=== PATIENT | female | born 1955 | race Caucasian/White ===

== ENCOUNTER 2017-08-19 07:10 | Day surgery (SDC) | payer OTHER, SELFPAY ==
[~2017-08-19] VITALS: Ht 167.6 cm; Wt 98.9 kg
[~2017-08-19 07:10] MED LIST: Cymbalta20 MG; ESOM20; ESTR2; LEVSOD50; LORA1; PROG100; TRAM50; TRAZ50
[2017-08-19] MEDS ORDERED: CITA20 PO (08:47)
== END 2017-08-19 22:52 | disposition home or self-care (01) ==
LOC: ORSCMMR 07:10 → ORD 08:30 → ORSCMMR 22:52
DX: C56.1 Malignant neoplasm of right ovary (principal); I10 Essential (primary) hypertension; E03.9 Hypothyroidism, unspecified; K21.9 Gastro-esophageal reflux disease without esophagitis; E66.9 Obesity, unspecified; Z68.35 Body mass index [BMI] 35.0-35.9, adult; Z79.899 Other long term (current) drug therapy
CPT/HCPCS: 77001; C1788; J0690; J1100; J1642; J2250; J2405; J7120

== ENCOUNTER 2017-09-11 14:45 | Day surgery (SDC) | payer OTHER ==
[~2017-09-11 14:45] MED LIST changes: +CITA20 PO
[2017-09-11] MEDS ORDERED: ONDA4 PO (19:04)
[2017-09-11] MEDS ORDERED: Compazine10 MG PO (19:05)
[2017-09-11] MEDS ORDERED: CITA20 PO (19:06)
[2017-09-11] MEDS ORDERED: Frova2.5 MG PO (19:06)
[2017-09-11] MEDS ORDERED: LEVSOD50 PO (19:07)
[2017-09-11] MEDS ORDERED: LORA1 PO (19:08)
[2017-09-11] MEDS ORDERED: MOMENI (19:08)
[2017-09-11] MEDS ORDERED: PANT40 PO (19:09)
[2017-09-11] MEDS ORDERED: RIZATRIPTAN5 M1 PO (19:10)
[2017-09-11] MEDS ORDERED: TOPI25 PO (19:11)
[2017-09-11] MEDS ORDERED: TRAZ100 PO (19:12)
[2017-09-11] MEDS ORDERED: CHOL10002 PO (19:13)
[2017-09-11] MEDS ORDERED: TRAM50 PO (19:13)
[2017-09-11] MEDS ORDERED: CETI5 PO (19:14)
[2017-09-11] MEDS ORDERED: MULTI VITAMIN1 EACH PO (19:15)
[2017-09-11] MEDS ORDERED: PROBIOTIC1 EAC1 PO (19:16)
== END 2017-09-11 17:40 | disposition home or self-care (01) ==
LOC: ATC 14:45
DX: C56.1 Malignant neoplasm of right ovary (principal); I10 Essential (primary) hypertension; E66.9 Obesity, unspecified; F43.29 Adjustment disorder with other symptoms; Z91.048 Other nonmedicinal substance allergy status; Z88.0 Allergy status to penicillin; Z88.8 Allergy status to other drugs, medicaments and biological substances; Z68.36 Body mass index [BMI] 36.0-36.9, adult; Z79.899 Other long term (current) drug therapy; Z90.710 Acquired absence of both cervix and uterus; Z90.722 Acquired absence of ovaries, bilateral; Z90.49 Acquired absence of other specified parts of digestive tract
CPT/HCPCS: 96372; J1447

== ENCOUNTER 2017-09-18 12:27 | Observation (INO) | payer OTHER, SELFPAY ==
[~2017-09-18] VITALS: Ht 167.6 cm; Wt 101.1 kg
[~2017-09-18 12:27] MED LIST changes: +CETI5 PO; +CHOL10002 PO; +Compazine10 MG PO; +Frova2.5 MG PO; +LEVSOD50 PO; +LORA1 PO; +MOMENI; +MULTI VITAMIN1 EACH PO; +ONDA4 PO; +PANT40 PO; +PROBIOTIC1 EAC1 PO; +RIZATRIPTAN5 M1 PO; +TOPI25 PO; +TRAM50 PO; +TRAZ100 PO
[2017-09-18 13:12] LABS: Hematocrit 38.6 % (33.0-51.0); Hemoglobin 12.9 g/dL (11.5-16.0); Mean Corpuscular HGB 26.8 pg (26.0-34.0); Mean Corpuscular HGB Conc 33.4 g/dL (31.5-36.5); Mean Corpuscular Volume 80 fL (80-100); Platelet Count 145 K/mm3 (150-400); RDW Coefficient Variation 13.8 % (11.7-14.2); RDW Standard Deviation 37.6 fL (35.1-46.3); Red Blood Cell Count 4.81 M/mm3 (3.80-5.20)
[2017-09-18 13:32] LABS: Albumin, Blood 3.4 g/dL (3.4-5.0); Albumin/Globulin Ratio 0.8 (0.8-1.8); Bilirubin, Total 0.9 mg/dL (0.1-1.0); Bun/Creatinine Ratio 19.6 (12.0-20.0); Calcium, Blood 8.8 mg/dL (8.5-10.1); Creatinine, Blood 1.07 mg/dL (0.40-1.00); Globulin, Blood 4.3 g/dL (2.2-4.0); Total Protein, Blood 7.7 g/dL (6.4-8.2)
[2017-09-18 13:33] LABS: White Blood Cell Count 0.73 K/mm3 (4.00-11.30)
[2017-09-18 13:39] LABS: Magnesium, Blood 1.3 mg/dL (1.6-2.4); Troponin I <0.015 ng/mL (0.000-0.040)
[2017-09-18 13:48] LABS: BASOPHILS ABSOLUTE MAN 0.02 K/mm3 (0.00-0.23); BASOPHILS PERCENT MAN 4 % (0-2); EOSINOPHILS PERCENT MAN 0 % (0-6); LYMPHOCYTES ABSOLUTE MAN 0.52 K/mm3 (0.84-5.20); LYMPHOCYTES PERCENT MAN 72 % (21-46); MONOCYTES ABSOLUTE MAN 0.14 K/mm3 (0.16-1.47); MONOCYTES PERCENT MAN 20 % (4-13); NEUTROPHILS ABSOLUTE MAN 0.02 K/mm3 (1.96-9.15); SEG NEUTROPHILS PERCENT MAN 4 % (41-73); TOTAL CELLS COUNTED 25
[2017-09-19 05:08] LABS: BASOPHILS PERCENT AUTO 0 % (0-2); Hematocrit 33.1 % (33.0-51.0); Mean Corpuscular HGB 26.8 pg (26.0-34.0); Mean Corpuscular HGB Conc 33.2 g/dL (31.5-36.5); Mean Corpuscular Volume 81 fL (80-100); Mean Platelet Volume 11.4 fL (9.1-12.4); Platelet Count 103 K/mm3 (150-400); RDW Coefficient Variation 13.6 % (11.7-14.2); RDW Standard Deviation 38.1 fL (35.1-46.3); White Blood Cell Count 1.16 K/mm3 (4.00-11.30)
[2017-09-19 05:12] LABS: EOSINOPHILS ABSOLUTE AUTO 0.02 K/mm3 (0.00-0.68); EOSINOPHILS PERCENT AUTO 2 % (0-6); IMMATURE GRAN PERCENT AUTO 0 % (0-1); LYMPHOCYTES ABSOLUTE AUTO 0.51 K/mm3 (0.84-5.20); LYMPHOCYTES PERCENT AUTO 44 % (21-46); MONOCYTES ABSOLUTE AUTO 0.35 K/mm3 (0.16-1.47); MONOCYTES PERCENT AUTO 30 % (4-13); NEUTROPHILS ABSOLUTE AUTO 0.28 K/mm3 (1.96-9.15); NEUTROPHILS PERCENT AUTO 24 % (41-73)
[2017-09-19 05:22] LABS: Albumin, Blood 2.6 g/dL (3.4-5.0); Anion Gap 12 mmol/L (6-16); Blood Urea Nitrogen 16 mg/dL (8-24); Bun/Creatinine Ratio 20.2 (12.0-20.0); CO2, Blood 22 mmol/L (21-32); Calcium, Blood 7.6 mg/dL (8.5-10.1); Chloride, Blood 100 mmol/L (98-108); Creatinine, Blood 0.79 mg/dL (0.40-1.00); Glomerular Filtration Rate >60 (60-); Glucose, Blood 150 mg/dL (70-99); Phosphorus, Blood 1.7 mg/dL (2.5-4.9); Potassium, Blood 2.8 mmol/L (3.5-5.5); Sodium, Blood 134 mmol/L (136-145)
[2017-09-19 14:29] LABS: Source, Urine Voided
[2017-09-19 14:39] LABS: Bilirubin, Urine Neg (Neg); Blood, Urine 3+ (Neg); Glucose Qualitative, Urine Neg (Neg); Ketones, Urine Neg (Neg); Leukocyte Esterase, Urine Neg (Neg); Nitrite, Urine Neg (Neg); Protein, Urine 3+ (Neg); Specific Gravity, Urine 1.015 (1.003-1.022); Urobilinogen, Urine NORM (Normal)
[2017-09-19 14:57] LABS: Appearance, Urine Clear (Clear); Color, Urine Yellow (P-Yellow)
[2017-09-19 14:59] LABS: Bacteria Few /hpf; Squamous Epithelial Cells Few /hpf (Few); Transitional Epithelial Cells Few /hpf (0-Rare)
[2017-09-20 05:47] LABS: Hematocrit 32.5 % (33.0-51.0); Hemoglobin 10.9 g/dL (11.5-16.0); Mean Corpuscular HGB 26.6 pg (26.0-34.0); Mean Corpuscular HGB Conc 33.5 g/dL (31.5-36.5); Mean Corpuscular Volume 79 fL (80-100); Mean Platelet Volume 12.3 fL (9.1-12.4); NRBC ABSOLUTE 0.02 K/mm3 (0.00-0.02); NRBC Auto 0.3 /100 WBC (0.0-0.2); Platelet Count 132 K/mm3 (150-400); RDW Coefficient Variation 13.6 % (11.7-14.2); RDW Standard Deviation 37.8 fL (35.1-46.3); White Blood Cell Count 6.34 K/mm3 (4.00-11.30)
[2017-09-20 06:08] LABS: BAND PERCENT MAN 18 % (0-8); BASOPHILS ABSOLUTE MAN 0.06 K/mm3 (0.00-0.23); BASOPHILS PERCENT MAN 1 % (0-2); EOSINOPHILS ABSOLUTE MAN 0.12 K/mm3 (0.00-0.68); EOSINOPHILS PERCENT MAN 2 % (0-6); LYMPHOCYTES % ATYPICAL MANUAL 1 % (0-0); LYMPHOCYTES ABSOLUTE MAN 1.83 K/mm3 (0.84-5.20); LYMPHOCYTES PERCENT MAN 28 % (21-46); METAMYELOCYTE ABSOLUTE MAN 0.12 K/mm3 (0.00-0.00); METAMYELOCYTE PERCENT MAN 2 % (0-0); MONOCYTES PERCENT MAN 19 % (4-13); MYELOCYTE ABSOLUTE MAN 0.06 K/mm3 (0.00-0.00); MYELOCYTE PERCENT MAN 1 % (0-0); NEUTROPHILS ABSOLUTE MAN 2.91 K/mm3 (1.96-9.15); SEG NEUTROPHILS PERCENT MAN 28 % (41-73); TOTAL CELLS COUNTED 100
[2017-09-21 05:21] LABS: Hematocrit 29.3 % (33.0-51.0); Hemoglobin 9.7 g/dL (11.5-16.0); Mean Corpuscular HGB 26.4 pg (26.0-34.0); Mean Corpuscular HGB Conc 33.1 g/dL (31.5-36.5); Mean Corpuscular Volume 80 fL (80-100); Mean Platelet Volume 12.3 fL (9.1-12.4); NRBC ABSOLUTE 0.02 K/mm3 (0.00-0.02); NRBC Auto 0.2 /100 WBC (0.0-0.2); Platelet Count 124 K/mm3 (150-400); RDW Coefficient Variation 13.7 % (11.7-14.2); RDW Standard Deviation 38.3 fL (35.1-46.3); Red Blood Cell Count 3.67 M/mm3 (3.80-5.20)
[2017-09-21 06:14] LABS: BAND PERCENT MAN 15 % (0-8); BASOPHILS PERCENT MAN 0 % (0-2); EOSINOPHILS PERCENT MAN 0 % (0-6); LYMPHOCYTES ABSOLUTE MAN 2.38 K/mm3 (0.84-5.20); LYMPHOCYTES PERCENT MAN 20 % (21-46); METAMYELOCYTE ABSOLUTE MAN 0.11 K/mm3 (0.00-0.00); METAMYELOCYTE PERCENT MAN 1 % (0-0); MONOCYTES ABSOLUTE MAN 0.71 K/mm3 (0.16-1.47); MONOCYTES PERCENT MAN 6 % (4-13); MYELOCYTE ABSOLUTE MAN 0.47 K/mm3 (0.00-0.00); MYELOCYTE PERCENT MAN 4 % (0-0); NEUTROPHILS ABSOLUTE MAN 8.21 K/mm3 (1.96-9.15); SEG NEUTROPHILS PERCENT MAN 54 % (41-73); TOTAL CELLS COUNTED 100
[2017-09-21 08:36] LABS: Magnesium, Blood 1.6 mg/dL (1.6-2.4)
[2017-09-21 08:45] LABS: Anion Gap 9 mmol/L (6-16); Blood Urea Nitrogen 8 mg/dL (8-24); Bun/Creatinine Ratio 13.2 (12.0-20.0); CO2, Blood 25 mmol/L (21-32); Calcium, Blood 7.3 mg/dL (8.5-10.1); Chloride, Blood 102 mmol/L (98-108); Creatinine, Blood 0.61 mg/dL (0.40-1.00); Glomerular Filtration Rate >60 (60-); Glucose, Blood 114 mg/dL (70-99); Sodium, Blood 136 mmol/L (136-145)
[2017-09-21 08:53] LABS: Potassium, Blood 2.4 mmol/L (3.5-5.5)
[2017-09-22 05:18] LABS: Hematocrit 28.2 % (33.0-51.0); Hemoglobin 9.2 g/dL (11.5-16.0); Mean Corpuscular HGB 26.1 pg (26.0-34.0); Mean Corpuscular HGB Conc 32.6 g/dL (31.5-36.5); Mean Corpuscular Volume 80 fL (80-100); Mean Platelet Volume 11.7 fL (9.1-12.4); NRBC ABSOLUTE 0.02 K/mm3 (0.00-0.02); NRBC Auto 0.1 /100 WBC (0.0-0.2); Platelet Count 155 K/mm3 (150-400); Red Blood Cell Count 3.52 M/mm3 (3.80-5.20); White Blood Cell Count 15.13 K/mm3 (4.00-11.30)
[2017-09-22 05:40] LABS: BAND PERCENT MAN 5 % (0-8); BASOPHILS PERCENT MAN 0 % (0-2); EOSINOPHILS PERCENT MAN 0 % (0-6); LYMPHOCYTES ABSOLUTE MAN 2.87 K/mm3 (0.84-5.20); LYMPHOCYTES PERCENT MAN 19 % (21-46); METAMYELOCYTE ABSOLUTE MAN 0.15 K/mm3 (0.00-0.00); METAMYELOCYTE PERCENT MAN 1 % (0-0); MONOCYTES ABSOLUTE MAN 1.36 K/mm3 (0.16-1.47); MONOCYTES PERCENT MAN 9 % (4-13); MYELOCYTE PERCENT MAN 4 % (0-0); NEUTROPHILS ABSOLUTE MAN 10.13 K/mm3 (1.96-9.15); SEG NEUTROPHILS PERCENT MAN 62 % (41-73); TOTAL CELLS COUNTED 100
[2017-09-23 05:16] LABS: Hematocrit 27.8 % (33.0-51.0); Hemoglobin 9.1 g/dL (11.5-16.0); Mean Corpuscular HGB 26.7 pg (26.0-34.0); Mean Corpuscular HGB Conc 32.7 g/dL (31.5-36.5); Mean Corpuscular Volume 82 fL (80-100); Mean Platelet Volume 11.2 fL (9.1-12.4); NRBC ABSOLUTE 0.03 K/mm3 (0.00-0.02); NRBC Auto 0.2 /100 WBC (0.0-0.2); Platelet Count 183 K/mm3 (150-400); RDW Coefficient Variation 14.6 % (11.7-14.2); RDW Standard Deviation 41.2 fL (35.1-46.3); Red Blood Cell Count 3.41 M/mm3 (3.80-5.20); White Blood Cell Count 17.14 K/mm3 (4.00-11.30)
[2017-09-23 05:37] LABS: Anion Gap 8 mmol/L (6-16); Blood Urea Nitrogen 9 mg/dL (8-24); Bun/Creatinine Ratio 14.6 (12.0-20.0); CO2, Blood 24 mmol/L (21-32); Calcium, Blood 7.5 mg/dL (8.5-10.1); Chloride, Blood 106 mmol/L (98-108); Creatinine, Blood 0.62 mg/dL (0.40-1.00); Glomerular Filtration Rate >60 (60-); Glucose, Blood 115 mg/dL (70-99); Potassium, Blood 2.7 mmol/L (3.5-5.5); Sodium, Blood 138 mmol/L (136-145)
[2017-09-23 06:18] LABS: BAND PERCENT MAN 4 % (0-8); BASOPHILS ABSOLUTE MAN 0.17 K/mm3 (0.00-0.23); BASOPHILS PERCENT MAN 1 % (0-2); EOSINOPHILS PERCENT MAN 0 % (0-6); LYMPHOCYTES ABSOLUTE MAN 2.57 K/mm3 (0.84-5.20); LYMPHOCYTES PERCENT MAN 15 % (21-46); METAMYELOCYTE ABSOLUTE MAN 0.17 K/mm3 (0.00-0.00); METAMYELOCYTE PERCENT MAN 1 % (0-0); MONOCYTES ABSOLUTE MAN 1.71 K/mm3 (0.16-1.47); MONOCYTES PERCENT MAN 10 % (4-13); MYELOCYTE ABSOLUTE MAN 0.34 K/mm3 (0.00-0.00); MYELOCYTE PERCENT MAN 2 % (0-0); NEUTROPHILS ABSOLUTE MAN 12.16 K/mm3 (1.96-9.15); SEG NEUTROPHILS PERCENT MAN 67 % (41-73); TOTAL CELLS COUNTED 100
[2017-09-23 14:45] LABS: Anion Gap 8 mmol/L (6-16); Blood Urea Nitrogen 9 mg/dL (8-24); Bun/Creatinine Ratio 13.5 (12.0-20.0); CO2, Blood 24 mmol/L (21-32); Calcium, Blood 7.7 mg/dL (8.5-10.1); Chloride, Blood 108 mmol/L (98-108); Creatinine, Blood 0.67 mg/dL (0.40-1.00); Glomerular Filtration Rate >60 (60-); Glucose, Blood 109 mg/dL (70-99); Potassium, Blood 3.3 mmol/L (3.5-5.5); Sodium, Blood 140 mmol/L (136-145)
[2017-09-24 05:31] LABS: Hematocrit 28.3 % (33.0-51.0); Hemoglobin 9.1 g/dL (11.5-16.0); Mean Corpuscular HGB 26.7 pg (26.0-34.0); Mean Corpuscular HGB Conc 32.2 g/dL (31.5-36.5); Mean Corpuscular Volume 83 fL (80-100); Mean Platelet Volume 10.4 fL (9.1-12.4); NRBC ABSOLUTE 0.06 K/mm3 (0.00-0.02); NRBC Auto 0.3 /100 WBC (0.0-0.2); Platelet Count 210 K/mm3 (150-400); RDW Coefficient Variation 15.1 % (11.7-14.2); RDW Standard Deviation 43.8 fL (35.1-46.3); Red Blood Cell Count 3.41 M/mm3 (3.80-5.20); White Blood Cell Count 20.08 K/mm3 (4.00-11.30)
[2017-09-24 05:53] LABS: Anion Gap 6 mmol/L (6-16); Blood Urea Nitrogen 7 mg/dL (8-24); Bun/Creatinine Ratio 10.6 (12.0-20.0); CO2, Blood 24 mmol/L (21-32); Calcium, Blood 7.6 mg/dL (8.5-10.1); Chloride, Blood 110 mmol/L (98-108); Creatinine, Blood 0.66 mg/dL (0.40-1.00); Glomerular Filtration Rate >60 (60-); Glucose, Blood 106 mg/dL (70-99); Phosphorus, Blood 1.3 mg/dL (2.5-4.9); Potassium, Blood 3.2 mmol/L (3.5-5.5); Sodium, Blood 140 mmol/L (136-145)
[2017-09-24 06:05] LABS: BAND PERCENT MAN 12 % (0-8); BASOPHILS PERCENT MAN 0 % (0-2); EOSINOPHILS PERCENT MAN 0 % (0-6); LYMPHOCYTES ABSOLUTE MAN 4.21 K/mm3 (0.84-5.20); LYMPHOCYTES PERCENT MAN 21 % (21-46); METAMYELOCYTE PERCENT MAN 4 % (0-0); MONOCYTES PERCENT MAN 2 % (4-13); MYELOCYTE PERCENT MAN 6 % (0-0); NEUTROPHILS ABSOLUTE MAN 13.45 K/mm3 (1.96-9.15); SEG NEUTROPHILS PERCENT MAN 55 % (41-73); TOTAL CELLS COUNTED 100
[2017-09-26] MEDS ORDERED: Lomotil Tablet1 EACH PO (12:54)
== END 2017-09-26 14:05 | disposition home or self-care (01) ==
LOC: ER 12:27 → MEDS 15:26 → ER 15:26 → MEDS 17:19 → ER 09-19 12:29 → MEDS 09-19 12:29 → ENPENDDIS 09-26 12:43 → MEDS 09-26 14:05
PROVIDERS: Emergency Medicine; Family Medicine; Internal Medicine
DX: D70.1 Agranulocytosis secondary to cancer chemotherapy (principal); K52.1 Toxic gastroenteritis and colitis; T45.1X5A Adverse effect of antineoplastic and immunosuppressive drugs, initial encounter; C56.9 Malignant neoplasm of unspecified ovary; E87.6 Hypokalemia; E83.42 Hypomagnesemia; E86.0 Dehydration; G43.909 Migraine, unspecified, not intractable, without status migrainosus; F32.9 Major depressive disorder, single episode, unspecified; E03.9 Hypothyroidism, unspecified; K21.9 Gastro-esophageal reflux disease without esophagitis; I10 Essential (primary) hypertension; M79.7 Fibromyalgia; K76.0 Fatty (change of) liver, not elsewhere classified; Z90.49 Acquired absence of other specified parts of digestive tract; Z90.710 Acquired absence of both cervix and uterus; Z90.722 Acquired absence of ovaries, bilateral; Z90.89 Acquired absence of other organs; Z79.899 Other long term (current) drug therapy; Z88.0 Allergy status to penicillin; Z91.041 Radiographic dye allergy status; Z88.1 Allergy status to other antibiotic agents; Z88.8 Allergy status to other drugs, medicaments and biological substances; Z98.890 Other specified postprocedural states
CPT/HCPCS: 36415; 71045; 80048; 80053; 80069; 81001; 83690; 83735; 84132; 84484; 85025; 87015; 87040; 87045; 87046; 87070; 87205; 87493; 87899; 93005; 93010; 96361; 96365; 96366; 96372; 96374; 96375; 96376; 99285; G0378; J1170; J1447; J1956; J2405; J3480; J7030

== ENCOUNTER 2017-10-11 01:05 | Day surgery (SDC) | payer OTHER ==
[~2017-10-11 01:05] MED LIST changes: +Lomotil Tablet1 EACH PO
== END 2017-10-11 13:36 | disposition home or self-care (01) ==
LOC: ATC 01:05
DX: C56.1 Malignant neoplasm of right ovary (principal); E66.9 Obesity, unspecified; I10 Essential (primary) hypertension; F32.9 Major depressive disorder, single episode, unspecified
CPT/HCPCS: 96372; J1447

== ENCOUNTER 2017-10-12 01:12 | Day surgery (SDC) | payer OTHER | END 2017-10-12 14:35 | disposition home or self-care (01) | LOC: ATC 01:12 | DX: C56.1 Malignant neoplasm of right ovary (principal) | CPT/HCPCS: 96372; J1447 ==

== ENCOUNTER 2017-11-07 01:29 | Day surgery (SDC) | payer OTHER | END 2017-11-07 14:15 | disposition home or self-care (01) | LOC: ATC 01:29 | DX: C56.9 Malignant neoplasm of unspecified ovary (principal) | CPT/HCPCS: 96372; J1447 ==

== ENCOUNTER 2017-11-08 00:17 | Day surgery (SDC) | payer OTHER | END 2017-11-08 13:39 | disposition home or self-care (01) | LOC: ATC 00:17 | DX: C56.9 Malignant neoplasm of unspecified ovary (principal) | CPT/HCPCS: 96372; J1447 ==

== ENCOUNTER 2017-11-28 00:25 | Day surgery (SDC) | payer OTHER ==
[2017-11-28] MEDS ORDERED: FILG480I (14:14)
== END 2017-11-28 14:15 | disposition home or self-care (01) ==
LOC: ATC 00:25
DX: D70.1 Agranulocytosis secondary to cancer chemotherapy (principal); C56.1 Malignant neoplasm of right ovary
CPT/HCPCS: 96372; J1447

== ENCOUNTER 2017-11-29 00:39 | Day surgery (SDC) | payer OTHER ==
[~2017-11-29 00:39] MED LIST changes: +FILG480I
== END 2017-11-29 15:20 | disposition home or self-care (01) ==
LOC: ATC 00:39
DX: D70.1 Agranulocytosis secondary to cancer chemotherapy (principal); C56.1 Malignant neoplasm of right ovary
CPT/HCPCS: 96372; J1447

== ENCOUNTER 2017-12-19 00:14 | Day surgery (SDC) | payer OTHER, SELFPAY ==
[2017-12-19] MEDS ORDERED: CIPR500 PO (15:20)
== END 2017-12-19 15:41 | disposition home or self-care (01) ==
LOC: ATC 00:14
DX: D70.1 Agranulocytosis secondary to cancer chemotherapy (principal); I10 Essential (primary) hypertension
CPT/HCPCS: 96372; J1447

== ENCOUNTER 2017-12-20 00:24 | Day surgery (SDC) | payer OTHER, SELFPAY ==
[~2017-12-20 00:24] MED LIST changes: +CIPR500 PO
== END 2017-12-20 14:51 | disposition home or self-care (01) ==
LOC: ATC 00:24
DX: D70.1 Agranulocytosis secondary to cancer chemotherapy (principal); C56.1 Malignant neoplasm of right ovary
CPT/HCPCS: 96372; J1447

== ENCOUNTER 2020-12-20 07:46 | Day surgery (SDC) | payer MEDICARE, BC ==
[~2020-12-20] VITALS: Ht 167.6 cm; Wt 116.8 kg
[~2020-12-20 07:46] MED LIST changes: +AIMOVIG AU70 MG/1 ML SC; +AMERGE2.5 MG PO; +ASPI81CH PO; +Ativan1 MG PO; +BUTALBITAL PO; +Inderal60 MG PO; +LEVSOD25 PO; +QUDEXY PO; +RIZATRIPTAN10 MG; +VITAMIN D310 MC4 PO
--- NOTE | 2020-12-20 09:30 | NUR ---
Ambulatory in Day Surgery c CANE. Patient confirms NPO status and agrees with scheduled surgery. Lungs clear T/O to Auscultation. History, Chart, Medications and Allergies reviewed before start of procedure. Patient reports completing Chlorhexadine shower X2 prior to admission to hospital. + VOID. Surgical site prepped with 2% Chlorhexidine cloth wipe.
--- NOTE | 2020-12-20 12:59 | NUR ---
REPORT TO HEBER PT IS A/O XRAY IN PROGRESS SHE HAS NO PAIN OR NAUSEA LEXIEG CDI
--- NOTE | 2020-12-20 13:02 | NUR ---
SENSATION FELT TO BOTTOM OF FEET
--- NOTE | 2020-12-20 20:42 | NUR ---
SHIFT SUMMARY PT POST OP LEFT TKA WITH DR ARAIZA. TOLERATING REGULAR DIET AND FLUIDS. UP WALKING IN HALLS WITH PHYSICAL THERAPY. VOIDING WELL. AQUACEL AND CARLITA WRAP TO LEFT KNEE. PAIN CONTROLLED WITH PO AND IV PAIN MEDS. REPORT GIVEN TO TOOLING INSPECTOR RN.
--- NOTE | 2020-12-20 22:43 | NUR ---
PT AGREES TO STUDENT PARTICIPATION IN CARE
[2020-12-21 04:39] LABS: BASOPHILS ABSOLUTE AUTO 0.09 K/mm3 (0.00-0.23); BASOPHILS PERCENT AUTO 1 % (0-2); EOSINOPHILS ABSOLUTE AUTO 0.32 K/mm3 (0.00-0.68); EOSINOPHILS PERCENT AUTO 4 % (0-6); Hematocrit 39.1 % (33.0-51.0); Hemoglobin 12.7 g/dL (11.5-16.0); IMMATURE GRAN ABSOLUTE AUTO 0.02 K/mm3 (0.00-0.10); IMMATURE GRAN PERCENT AUTO 0 % (0-1); LYMPHOCYTES ABSOLUTE AUTO 1.42 K/mm3 (0.84-5.20); LYMPHOCYTES PERCENT AUTO 18 % (21-46); MONOCYTES ABSOLUTE AUTO 0.98 K/mm3 (0.16-1.47); MONOCYTES PERCENT AUTO 12 % (4-13); Mean Corpuscular HGB 30.3 pg (26.0-34.0); Mean Corpuscular HGB Conc 32.5 g/dL (31.5-36.5); Mean Corpuscular Volume 93 fL (80-100); Mean Platelet Volume 11.5 fL (9.1-12.4); NEUTROPHILS ABSOLUTE AUTO 5.11 K/mm3 (1.96-9.15); NEUTROPHILS PERCENT AUTO 64 % (41-73); Platelet Count 167 K/mm3 (150-400); RDW Coefficient Variation 12.9 % (11.7-14.2); RDW Standard Deviation 43.9 fL (35.1-46.3); Red Blood Cell Count 4.19 M/mm3 (3.80-5.20); White Blood Cell Count 7.94 K/mm3 (4.00-11.30)
--- NOTE | 2020-12-21 04:41 | NUR ---
SHIFT SUMMARY:POD#1 LEFT TKA PT IS A&OX4 PLEASANT AFFECT WITH BRIEF SMILES AND GOOD EYE CONTACT. PAIN IS TOLERABLE AND CONTROLED WITH MEDICATIONS AQUACEL WITH CARLITA WRAP C/D/I WITH COLD THERAPY OOB WITH BRP WITH 1P ASSIST FWW AND GAIT BELT. PT HAS TWO 20G IV SITES IN RIGHT AC AND FA SALINE LOCKED AT THIS TIME. PT IS ORIENTATED TO ROOM AND HAS CALL LIGHT WITHIN REACH.
[2020-12-21 05:00] LABS: Anion Gap 6 mmol/L (6-16); Blood Urea Nitrogen 15 mg/dL (8-24); Bun/Creatinine Ratio 16.6 (12.0-20.0); CO2, Blood 25 mmol/L (21-32); Calcium, Blood 7.8 mg/dL (8.5-10.1); Chloride, Blood 107 mmol/L (98-108); Glomerular Filtration Rate >60 (60-); Glucose, Blood 115 mg/dL (70-99); Magnesium, Blood 1.8 mg/dL (1.6-2.4); Potassium, Blood 3.9 mmol/L (3.5-5.5); Sodium, Blood 138 mmol/L (136-145)
[2020-12-21] MEDS ORDERED: Percocet 5-3251 EACH PO (09:38)
--- NOTE | 2020-12-21 11:30 | NUR ---
DISCHARGE PT AMBULATING, EATING, DRINKING, AND VOIDING WELL. CLEARED THERAPY AND IS COOPERATIVE. VSS. AQUACEL DRESSING IS C/D/I. DISCHARGE INSTRUCTIONS, SCRIPTS, DRESSINGS, & POLAR PACK SENT WITH PT. ESCORTED OUT VIA W/C.
== END 2020-12-21 11:54 | disposition home or self-care (01) ==
LOC: ORSCMMR 07:46 → ORD 09:45 → ORSCMMR 09:45 → SURS 13:47 → ORSCMMR 12-21 11:54 → SURS 12-21 11:54
PROVIDERS: Orthopaedic Surgery
PROC: 8E0YXBZ Computer Assisted Procedure of Lower Extremity (ICD-10-PCS; principal; 2020-12-20 09:45)
PROC: 0SRD0JA Replacement of Left Knee Joint with Synthetic Substitute, Uncemented, Open Approach (ICD-10-PCS; principal; 2020-12-20 09:45)
DX: M17.12 Unilateral primary osteoarthritis, left knee (principal); I10 Essential (primary) hypertension; E03.9 Hypothyroidism, unspecified; F41.8 Other specified anxiety disorders; K21.9 Gastro-esophageal reflux disease without esophagitis; E66.9 Obesity, unspecified; Z68.41 Body mass index [BMI] 40.0-44.9, adult; Z79.82 Long term (current) use of aspirin; Z79.899 Other long term (current) drug therapy
CPT/HCPCS: 36415; 73560-LT; 80048; 83735; 85025; 97110; 97116; 97162; A9270; C1776; J0171; J0690; J0735; J1170; J1885; J2250; J2704; J2795; J7120

== ENCOUNTER 2021-06-20 10:58 | Day surgery (SDC) | payer MEDICARE, BC ==
[~2021-06-20] VITALS: Ht 167.6 cm; Wt 115.4 kg
[~2021-06-20 10:58] MED LIST changes: +Percocet 5-3251 EACH PO
[2021-06-20] MEDS ORDERED: BUTALB-ACETAMI1 EAC5 PO (11:33)
--- NOTE | 2021-06-20 12:15 | NUR ---
Ambulatory in Day Surgery. History, Chart, Medications and Allergies reviewed before start of procedure. Lungs clear T/O to Auscultation. Patient confirms NPO status and agrees with scheduled surgery.
--- NOTE | 2021-06-20 15:52 | NUR ---
PATIENT ARRIVED FROM PACU TODAY 06/20/21 AT 1510. POD 0 RIGHT KNEE REPLACEMENT PATIENT IS ALERT AND ORIENTED X4. VS ARE WNL AND IS ON RA. PATIENT DENIES PAIN AT THIS TIME DUE TO SPINAL SHE HAD DURING SURGERY. PATIENT REPORTS SOME NUMBNESS AND TINGLING IN BOTH LEGS BUT REPORTS IT FEELING "BETTER AND BETTER". PATIENT IS ABLE TO WIGGLE FINGERS AND TOES WHEN ASKED. SHE CAN EVEN LIFT HER KNEE AND BEND WHEN ASKED. SHE TOLERATES A SMALL AMOUNT OF PO INTAKE. IV FLUIDS RUNNING. CALL LIGHT WITHIN REACH.
--- NOTE | 2021-06-21 03:46 | NUR ---
SHIFT SUMMARY A/OX4. POD1 R TOTAL KNEE, AQUACEL AND CARLITA WRAP C/D/I. POLAR PACK IN PLACE. VOIDING WELL AND TOLERATING PO INTAKE. AMBULATING WELL WITH WALKER. MINIMAL PAIN BEING TREATED WITH PO PAIN MEDICATIONS. WILL REPORT TO ONCOMING RN.
[2021-06-21 04:37] LABS: BASOPHILS ABSOLUTE AUTO 0.05 K/mm3 (0.00-0.23); BASOPHILS PERCENT AUTO 0 % (0-2); EOSINOPHILS ABSOLUTE AUTO 0.02 K/mm3 (0.00-0.68); EOSINOPHILS PERCENT AUTO 0 % (0-6); Hematocrit 38.3 % (33.0-51.0); Hemoglobin 12.5 g/dL (11.5-16.0); IMMATURE GRAN ABSOLUTE AUTO 0.03 K/mm3 (0.00-0.10); IMMATURE GRAN PERCENT AUTO 0 % (0-1); LYMPHOCYTES ABSOLUTE AUTO 1.71 K/mm3 (0.84-5.20); LYMPHOCYTES PERCENT AUTO 14 % (21-46); MONOCYTES ABSOLUTE AUTO 1.05 K/mm3 (0.16-1.47); MONOCYTES PERCENT AUTO 9 % (4-13); Mean Corpuscular HGB 29.4 pg (26.0-34.0); Mean Corpuscular HGB Conc 32.6 g/dL (31.5-36.5); Mean Corpuscular Volume 90 fL (80-100); Mean Platelet Volume 11.2 fL (9.1-12.4); NEUTROPHILS PERCENT AUTO 76 % (41-73); Platelet Count 187 K/mm3 (150-400); RDW Coefficient Variation 13.6 % (11.7-14.2); RDW Standard Deviation 44.4 fL (35.1-46.3); Red Blood Cell Count 4.25 M/mm3 (3.80-5.20); White Blood Cell Count 12.06 K/mm3 (4.00-11.30)
[2021-06-21 05:18] LABS: Anion Gap 7 mmol/L (6-16); Blood Urea Nitrogen 15 mg/dL (8-24); Bun/Creatinine Ratio 19.4 (12.0-20.0); CO2, Blood 25 mmol/L (21-32); Calcium, Blood 8.5 mg/dL (8.5-10.1); Chloride, Blood 109 mmol/L (98-108); Creatinine, Blood 0.77 mg/dL (0.40-1.00); Glomerular Filtration Rate >60 (60-); Glucose, Blood 118 mg/dL (70-99); Potassium, Blood 3.8 mmol/L (3.5-5.5); Sodium, Blood 141 mmol/L (136-145)
[2021-06-21] MEDS ORDERED: ASPIR 8181 M1 PO (07:30)
[2021-06-21] MEDS ORDERED: Percocet 5-3251 EACH PO (07:31)
--- NOTE | 2021-06-21 09:48 | NUR ---
DISCHARGE NOTE: PATIENT WAS EDUCATED ON DISCHARGE INSTRUCTIONS. SHE VERBALIZED UNDERSTANDING OF INSTRUCTIONS. PAIN IS MANAGED WITH PO MEDICATIONS. HARD PERSCRIPTIONS WERE PUT IN INSTRUCTIONS FOLDER. HER RIGHT KNEE HAS AQUACEL AND CARLITA WRAP THAT ARE C/D/I. SHE DENIES NUMBNESS AND TINGLING. SHE CLEARED PT THIS MORNING. PATIENT IS ABLE TO AMBULATE AND GET DRESSED WITH MINIMAL HELP. IV WAS TAKEN OUT AND WAS WNL. SHE IS DRESSED AND HAS HER ITEMS GATHERED IN THE ROOM. SHE IS CURRENTLY BEING WHEELCHAIRED OUT TO HER HUSBANDS CAR WHICH WILL TAKE HER HOME.
== END 2021-06-21 09:46 | disposition home or self-care (01) ==
LOC: ORSCMMR 10:58 → ORD 12:30 → SURS 15:05 → ORSCMMR 06-21 09:46 → ORD 07-04 07:30
PROVIDERS: Orthopaedic Surgery
PROC: 0SRC0JA Replacement of Right Knee Joint with Synthetic Substitute, Uncemented, Open Approach (ICD-10-PCS; principal; 2021-06-20 12:30)
PROC: 8E0Y0CZ Robotic Assisted Procedure of Lower Extremity, Open Approach (ICD-10-PCS; principal; 2021-06-20 12:30)
DX: M17.11 Unilateral primary osteoarthritis, right knee (principal); Z23 Encounter for immunization; I10 Essential (primary) hypertension; K21.9 Gastro-esophageal reflux disease without esophagitis; E03.9 Hypothyroidism, unspecified; E66.01 Morbid (severe) obesity due to excess calories; Z68.41 Body mass index [BMI] 40.0-44.9, adult; Z79.899 Other long term (current) drug therapy
CPT/HCPCS: 27447; S2900; 36415; 73560-RT; 80048; 85025; 90686; 97110; 97116; 97161; A9270; C1776; G0008; J0171; J0690; J0735; J1100; J1885; J2250; J2370; J2405; J2704; J2795; J3010; J7120

== ENCOUNTER → 2025-06-21 | Outpatient (CLI) | payer MEDICARE ==
[~2025-06-21] MED LIST changes: +ASPIR 8181 M1 PO; +BUTALB-ACETAMI1 EAC5 PO
== END ==
LOC: LAB SHORT 14:15 → LAB 14:15
DX: R10.20 Pelvic and perineal pain unspecified side (principal)
CPT/HCPCS: 87086